=== PATIENT | female | born 1990 | race Two or more races ===

== ENCOUNTER 2022-10-07 10:41 | Emergency (ER) | payer OTHER ==
[~2022-10-07] VITALS: Ht 180.3 cm; Wt 89.4 kg
[2022-10-07] MEDS ORDERED: PRENATAL TABLE1 EAC4 (11:18)
== END 2022-10-07 16:10 | disposition home or self-care (01) ==
LOC: ER 10:41
DX: O20.9 Hemorrhage in early pregnancy, unspecified (principal); Z3A.08 8 weeks gestation of pregnancy

== ENCOUNTER 2022-10-17 04:54 | Emergency (ER) | payer OTHER ==
[~2022-10-17] VITALS: Ht 180.3 cm; Wt 89.4 kg
[~2022-10-17 04:54] MED LIST: PRENATAL TABLE1 EAC4
== END 2022-10-17 11:12 | disposition home or self-care (01) ==
LOC: ER 04:54
DX: O20.9 Hemorrhage in early pregnancy, unspecified (principal); Z3A.01 Less than 8 weeks gestation of pregnancy

== ENCOUNTER 2025-01-06 08:25 | Emergency (ER) | payer OTHER ==
[~2025-01-06] VITALS: Ht 180.3 cm; Wt 99.8 kg
[2025-01-06 10:02] LABS: BASO % 0.2 % (0.1-1.2); EOS # 0.04 (0.04-0.54); EOS % 0.4 % (0.7-7.0); HEMOGLOBIN 10.4 g/dL (11.2-15.7); LYMPH # 1.63 (1.18-3.74); LYMPH % 15.5 % (19.3-53.1); MEAN CORPUSCULAR HEMOGLOBIN 26.8 pg (25.6-32.2); MONO % 5.7 % (4.7-12.5); NEUT # 8.14 (1.56-6.13); NEUT % 77.6 % (34.0-71.1); PLATELET COUNT 216 K/uL (163-369); RED BLOOD COUNT 3.88 M/uL (3.93-5.22); RED CELL DISTRIBUTION WIDTH 13.9 % (11.6-14.4)
== END 2025-01-06 15:44 | disposition home or self-care (01) ==
LOC: ER 08:25
PROVIDERS: Emergency Medicine
DX: O20.8 Other hemorrhage in early pregnancy (principal); Z3A.01 Less than 8 weeks gestation of pregnancy

== ENCOUNTER → 2025-02-14 09:49 | Outpatient (CLI) | payer OTHER | END | disposition home or self-care (01) | LOC: PRENATAL 09:49 | PROVIDERS: ATTEND Obstetrics & Gynecology Maternal & Fetal Medicine | DX: O36.80X0 Pregnancy with inconclusive fetal viability, not applicable or unspecified (principal); Z36.82 Encounter for antenatal screening for nuchal translucency; O99.019 Anemia complicating pregnancy, unspecified trimester; O34.10 Maternal care for benign tumor of corpus uteri, unspecified trimester; Z3A.13 13 weeks gestation of pregnancy ==

== ENCOUNTER 2025-02-25 11:15 | Emergency (ER) | payer OTHER ==
[~2025-02-25] VITALS: Ht 177.8 cm; Wt 104.3 kg
[2025-02-25 11:47] VITALS: O2SAT 99
[2025-02-25] MEDS ORDERED: CHILDREN'S ASPI81 MG PO (11:48)
[2025-02-25] MEDS ORDERED: 0.9 % SODIUM CHLORIDE 1,000 ML IV ONE (12:15)
[2025-02-25] MEDS ORDERED: LABETALOL HCL 200 MG/40 ML VIAL IV ONE (12:15)
[2025-02-25 12:40] LABS: BASO % 0.3 % (0.1-1.2); EOS # 0.06 (0.04-0.54); EOS % 0.5 % (0.7-7.0); LYMPH # 1.70 (1.18-3.74); LYMPH % 13.5 % (19.3-53.1); MEAN PLATELET VOLUME 8.90 fl (9.4-12.4); MONO # 0.77 (0.24-0.82); MONO % 6.1 % (4.7-12.5); NEUT # 9.86 (1.56-6.13); NEUT % 78.6 % (34.0-71.1); RED CELL DISTRIBUTION WIDTH 13.3 % (11.6-14.4)
[2025-02-25] MEDS ORDERED: LABETALOL HCL 100 MG/20 ML ML ONE (12:45)
[2025-02-25 13:32] LABS: ALT/SGPT 19.0 U/L (12-78); AST/SGOT 18.0 U/L (15-37); BILIRUBIN TOTAL 0.19 mg/dL (0.3-1.2); BUN CREA RATIO 9.0 (7.0-25.0); CREATININE SERUM 0.53 mg/dL (0.55-1.02); GFR 133.68; GLOBULINA 4.2 G/DL (2.4-3.5); GLUCOSE FASTING 92.0 mg/dL (65-100); OSMOLALITY SERUM 274.0 MOSM/KG (275-295)
[2025-02-25 13:42] LABS: HCG QUANTITATIVE 18090.0 mUI/mL (1-3)
[2025-02-25 14:28] LABS: URINE APPEARANCE Turbid; URINE BILIRRUBIN Negative (NEGATIVE); URINE BLOOD Negative; URINE COLOR Yellow; URINE GLUCOSE Negative (NEGATIVE); URINE KETONE Negative (NEGATIVE); URINE LEUKOCYTE Negative; URINE NITRATE Negative; URINE PROTEIN Negative (NEGATIVE); URINE UROBILINOGEN 0.2 E.U./dl
[2025-02-25 14:29] LABS: URINE BACTERIA 2834.3 uL (0.0-1933); URINE EPITHELIAL CELLS 72.6 uL (0.0-38.8); URINE RBC 6.5 uL (0.0-20.8); URINE WBC 25.6 uL (0.0-23.2)
[2025-02-25 14:52] LABS: URINE CAST 0.14 uL (0.0-1.40)
[2025-02-25] MEDS ORDERED: NIFEDIPINE ER30 M1 PO (15:52)
[2025-02-25 16:26] VITALS: BP 136/82
== END 2025-02-25 16:28 | disposition home or self-care (01) ==
LOC: ER 11:15
PROVIDERS: General Practice
DX: O13.2 Gestational [pregnancy-induced] hypertension without significant proteinuria, second trimester (principal); Z3A.14 14 weeks gestation of pregnancy

== ENCOUNTER 2025-03-14 09:14 | Emergency (ER) | payer OTHER ==
[~2025-03-14] VITALS: Ht 180.3 cm; Wt 104.3 kg
[~2025-03-14 09:14] MED LIST changes: +CHILDREN'S ASPI81 MG PO; +LABETALOL HCL200 MG PO; +NIFEDIPINE ER30 M1 PO
[2025-03-14 10:25] LABS: URINE APPEARANCE Clear; URINE BILIRRUBIN Negative (NEGATIVE); URINE BLOOD Negative; URINE COLOR Yellow; URINE GLUCOSE Negative (NEGATIVE); URINE LEUKOCYTE Negative; URINE NITRATE Negative; URINE PROTEIN Negative (NEGATIVE); URINE UROBILINOGEN 1.0 E.U./dl
[2025-03-14 10:29] LABS: URINE BACTERIA 968.3 uL (0.0-1933); URINE EPITHELIAL CELLS 36.6 uL (0.0-38.8); URINE RBC 19.5 uL (0.0-20.8); URINE WBC 52.3 uL (0.0-23.2)
[2025-03-14 10:56] LABS: ALT/SGPT 16.0 U/L (12-78); AST/SGOT 10.0 U/L (15-37); BILIRUBIN TOTAL 0.49 mg/dL (0.3-1.2); BUN CREA RATIO 11.0 (7.0-25.0); CREATININE SERUM 0.56 mg/dL (0.55-1.02); GFR 125.45; GLOBULINA 4.4 G/DL (2.4-3.5); GLUCOSE FASTING 86.0 mg/dL (65-100); OSMOLALITY SERUM 274.0 MOSM/KG (275-295)
[2025-03-14 10:57] LABS: HCG QUANTITATIVE 11688.0 mUI/mL (1-3)
[2025-03-14 10:58] LABS: URINE CAST 0.73 uL (0.0-1.40); URINE KETONE 40 (NEGATIVE)
[2025-03-14 10:59] LABS: TYPE CELLS RENAL TUBULAR
[2025-03-14 11:12] LABS: BASO % 0.3 % (0.1-1.2); EOS # 0.05 (0.04-0.54); EOS % 0.3 % (0.7-7.0); LYMPH # 1.61 (1.18-3.74); LYMPH % 10.4 % (19.3-53.1); MEAN PLATELET VOLUME 9.30 fl (9.4-12.4); MONO # 1.25 (0.24-0.82); MONO % 8.0 % (4.7-12.5); NEUT # 12.53 (1.56-6.13); NEUT % 80.5 % (34.0-71.1); RED CELL DISTRIBUTION WIDTH 13.4 % (11.6-14.4)
== END 2025-03-14 15:01 | disposition home or self-care (01) ==
LOC: ER 09:14
PROVIDERS: General Practice
DX: O26.892 Other specified pregnancy related conditions, second trimester (principal); Z3A.17 17 weeks gestation of pregnancy; I10 Essential (primary) hypertension

== ENCOUNTER → 2025-04-08 07:51 | Outpatient (CLI) | payer OTHER | END | disposition home or self-care (01) | LOC: PRENATAL 07:51 | PROVIDERS: ATTEND Obstetrics & Gynecology Maternal & Fetal Medicine | DX: O44.00 Complete placenta previa NOS or without hemorrhage, unspecified trimester (principal); O34.10 Maternal care for benign tumor of corpus uteri, unspecified trimester; O10.019 Pre-existing essential hypertension complicating pregnancy, unspecified trimester; Z3A.21 21 weeks gestation of pregnancy ==

== ENCOUNTER → 2025-05-29 | Outpatient (CLI) | payer OTHER | END | disposition home or self-care (01) | LOC: PRENATAL 05-28 16:42 | PROVIDERS: ATTEND Obstetrics & Gynecology Maternal & Fetal Medicine | DX: O26.849 Uterine size-date discrepancy, unspecified trimester (principal); O36.8130 Decreased fetal movements, third trimester, not applicable or unspecified; O34.10 Maternal care for benign tumor of corpus uteri, unspecified trimester; O10.019 Pre-existing essential hypertension complicating pregnancy, unspecified trimester; O36.60X0 Maternal care for excessive fetal growth, unspecified trimester, not applicable or unspecified; Z3A.29 29 weeks gestation of pregnancy ==

== ENCOUNTER → 2025-07-09 08:03 | Outpatient (CLI) | payer OTHER | END | disposition home or self-care (01) | LOC: PRENATAL 08:03 | PROVIDERS: ATTEND Obstetrics & Gynecology Maternal & Fetal Medicine | DX: O26.843 Uterine size-date discrepancy, third trimester (principal); O36.8130 Decreased fetal movements, third trimester, not applicable or unspecified; O34.13 Maternal care for benign tumor of corpus uteri, third trimester; O10.013 Pre-existing essential hypertension complicating pregnancy, third trimester; O99.013 Anemia complicating pregnancy, third trimester; Z3A.34 34 weeks gestation of pregnancy ==

== ENCOUNTER 2025-07-15 16:10 | Outpatient (CLI) | payer OTHER ==
[~2025-07-15] VITALS: Ht 180.3 cm; Wt 113.4 kg
[2025-07-15 16:22] VITALS: BP 149/97
[2025-07-15 16:58] LABS: BASO % 0.2 % (0.1-1.2); EOS # 0.04 (0.04-0.54); EOS % 0.3 % (0.7-7.0); LYMPH # 1.78 (1.18-3.74); LYMPH % 15.0 % (19.3-53.1); MEAN PLATELET VOLUME 9.70 fl (9.4-12.4); MONO # 0.85 (0.24-0.82); MONO % 7.2 % (4.7-12.5); NEUT # 9.06 (1.56-6.13); NEUT % 76.5 % (34.0-71.1); RED CELL DISTRIBUTION WIDTH 13.9 % (11.6-14.4)
[2025-07-15 16:59] LABS: URINE BILIRRUBIN Negative (NEGATIVE); URINE BLOOD Negative; URINE COLOR Yellow; URINE GLUCOSE Negative (NEGATIVE); URINE KETONE Trace (NEGATIVE); URINE LEUKOCYTE Moderate; URINE NITRATE Negative; URINE PROTEIN Trace (NEGATIVE); URINE UROBILINOGEN 1.0 E.U./dl
[2025-07-15 17:02] LABS: URINE EPITHELIAL CELLS 123.2 uL (0.0-38.8); URINE WBC 175.3 uL (0.0-23.2)
[2025-07-15 17:19] LABS: URINE APPEARANCE CLOUDY; URINE CAST 0.70 uL (0.0-1.40); URINE RBC 1.8 uL (0.0-20.8)
[2025-07-15 17:20] LABS: TYPE CELLS RENAL TUBULAR; URINE YEAST FEW /hpf
[2025-07-15 17:25] LABS: ALT/SGPT 15.0 U/L (12-78); AST/SGOT 9.0 U/L (15-37); BILIRUBIN TOTAL 0.29 mg/dL (0.3-1.2); BUN CREA RATIO 16.0 (7.0-25.0); CREATININE SERUM 0.51 mg/dL (0.55-1.02); GFR 139.75; GLOBULINA 3.9 G/DL (2.4-3.5); GLUCOSE FASTING 74.0 mg/dL (65-100); LDH 135.0 U/L (84-246); OSMOLALITY SERUM 276.0 MOSM/KG (275-295)
[2025-07-15] MEDS ORDERED: SOD FERRIC GLUC COMPLX/SUCROSE 62.5 MG/5 ML AMPUL IV NR (17:45)
[2025-07-15] MEDS ORDERED: RINGERS SOLUTION,LACTATED 1,000 ML IV SCH (17:45)
[2025-07-15 19:28] VITALS: BP 147/95
[2025-07-15] MEDS ORDERED: LABETALOL HCL 200 MG TABLET PO SCH (21:00)
[2025-07-15 23:27] VITALS: BP 121/78
[2025-07-16 03:15] VITALS: BP 111/67
[2025-07-16 07:16] VITALS: BP 136/81
[2025-07-16] MEDS ORDERED: ASPIRIN 81 MG TABLET.EC PO SCH (09:00)
[2025-07-16 11:32] VITALS: BP 145/85
[2025-07-16 15:00] VITALS: BP 133/85
[2025-07-16 15:20] VITALS: BP 133/85
== END 2025-07-16 15:24 | disposition home or self-care (01) ==
LOC: OBS/DEL 16:10
PROVIDERS: ATTEND Obstetrics & Gynecology
DX: O10.013 Pre-existing essential hypertension complicating pregnancy, third trimester (principal); O36.8130 Decreased fetal movements, third trimester, not applicable or unspecified; O34.13 Maternal care for benign tumor of corpus uteri, third trimester; O99.013 Anemia complicating pregnancy, third trimester; Z3A.35 35 weeks gestation of pregnancy

== ENCOUNTER 2025-07-30 11:17 | Outpatient (CLI) | payer OTHER ==
[2025-07-30 10:43] VITALS: BP 148/97
[2025-07-30 11:00] VITALS: BP 149/97
[2025-07-30] MEDS ORDERED: AMPICILLIN PO (11:34)
[2025-07-30 12:07] LABS: BASO % 0.3 % (0.1-1.2); EOS # 0.04 (0.04-0.54); EOS % 0.4 % (0.7-7.0); LYMPH # 1.37 (1.18-3.74); LYMPH % 13.9 % (19.3-53.1); MEAN PLATELET VOLUME 9.90 fl (9.4-12.4); MONO # 0.70 (0.24-0.82); MONO % 7.1 % (4.7-12.5); NEUT # 7.64 (1.56-6.13); NEUT % 77.4 % (34.0-71.1); RED CELL DISTRIBUTION WIDTH 15.0 % (11.6-14.4)
[2025-07-30 12:08] LABS: URINE APPEARANCE Cloudy; URINE BILIRRUBIN Negative (NEGATIVE); URINE BLOOD Negative; URINE COLOR Yellow; URINE GLUCOSE Negative (NEGATIVE); URINE KETONE Negative (NEGATIVE); URINE LEUKOCYTE Moderate; URINE NITRATE Negative; URINE PROTEIN Trace (NEGATIVE); URINE UROBILINOGEN 0.2 E.U./dl
[2025-07-30 12:11] LABS: URINE BACTERIA 2064.9 uL (0.0-1933); URINE EPITHELIAL CELLS 159.7 uL (0.0-38.8); URINE RBC 33.2 uL (0.0-20.8); URINE WBC 174.0 uL (0.0-23.2)
[2025-07-30 12:15] LABS: URINE CAST 0.42 uL (0.0-1.40)
[2025-07-30 12:31] LABS: INR 0.95
[2025-07-30 12:45] LABS: ALT/SGPT 14.0 U/L (12-78); AST/SGOT 11.0 U/L (15-37); BILIRUBIN TOTAL 0.31 mg/dL (0.3-1.2); BUN CREA RATIO 14.0 (7.0-25.0); CREATININE SERUM 0.59 mg/dL (0.55-1.02); GFR 118.12; GLOBULINA 3.8 G/DL (2.4-3.5); GLUCOSE FASTING 94.0 mg/dL (65-100); OSMOLALITY SERUM 281.0 MOSM/KG (275-295)
[2025-07-30] MEDS ORDERED: LABETALOL HCL 200 MG TABLET PO NR (12:45)
[2025-07-30 13:36] VITALS: BP 139/75
[2025-07-30 15:14] VITALS: BP 142/74
[2025-07-30 18:49] VITALS: BP 142/74
[2025-08-04] MEDS ORDERED: AMPICILLIN SOD500 MG PO (17:35)
[2025-08-04] MEDS ORDERED: LABETALOL HCL200 MG PO (17:36)
== END 2025-07-30 18:49 | disposition home or self-care (01) ==
LOC: OBS/DEL 11:17
PROVIDERS: Obstetrics & Gynecology; ATTEND Obstetrics & Gynecology
DX: O10.913 Unspecified pre-existing hypertension complicating pregnancy, third trimester (principal); Z3A.36 36 weeks gestation of pregnancy